=== PATIENT | male | born 1975 | race Caucasian/White ===

== ENCOUNTER 2017-10-10 02:19 | Emergency (ER) | payer MEDICAID ==
--- NOTE | 2017-10-10 02:57 | C.PDOC ---
History Of Present Illness <Rylan Salomon R - Last Filed: 10/10/17 06:42> <DavePawanTipton M - Last Filed: 10/10/17 09:26> Patient seen tonite due to substerbnal discomfort. dscribed as skipped bets. Hx of same beffore in the pas and being ff up in [facility]. (Rylan Salomon) History Per: Patient History/Exam Limitations: no limitations Onset/Duration Of Symptoms: Hrs Current Symptoms Are (Timing): Still Present Severity: None Pain Scale Rating Of: 0 Quality: Other (skipping beats) Associated Symptoms: denies: Nausea, Dyspnea, Diaphoresis, Syncope Modifying Factors: None Exacerbating Factors: None Alleviating Factors: None Recent travel outside of the [place]: No Additional History Per: Patient <Rylan Salomon - Last Filed: 10/10/17 06:42> <Saeed Acosta M - Last Filed: 10/10/17 09:26> Chief Complaint (Nursing): Palpitations Past Medical History - Medical History PMH: HTN Other PMH: cardiac arrythmia Surgical History: No Surg Hx Family History: States: Unknown Family Hx - Social History Hx Alcohol Use: No Hx Substance Use: No - Immunization History Hx Tetanus Toxoid Vaccination: No Hx Influenza Vaccination: No Hx Pneumococcal Vaccination: No <Rylan Salomon - Last Filed: 10/10/17 06:42> Vital Signs: Last Vital Signs Temp 98.3 F 10/10/17 04:58 Pulse 92 H 10/10/17 04:58 Resp 18 10/10/17 07:32 BP 144/80 10/10/17 04:58 Pulse Ox 94 L 10/10/17 07:32 Review Of Systems Constitutional: Negative for: Fever, Chills, Sweats, Weakness, Malaise, Weight loss Cardiovascular: Positive for: Palpitations. Negative for: Orthopnea, Edema, Light Headedness Respiratory: Negative for: Cough, Shortness of Breath, Hemoptysis Gastrointestinal: Negative for: Nausea, Vomiting Genitourinary: Negative for: Dysuria Musculoskeletal: Negative for: Neck Pain, Shoulder Pain Skin: Negative for: Rash Neurological: Negative for: Weakness, Numbness, Incoordination, Change in Speech Psych: Positive for: Anxiety. Negative for: Depression <Rylan Salomon - Last Filed: 10/10/17 06:42> Physical Exam - Physical Exam Appears: No Acute Distress Skin: Normal Color Nose: Normal Throat: Normal Neck: Normal Cardiovascular: Rhythm Regular, Other (occa. premature beats.) Respiratory: Normal Breath Sounds Gastrointestinal/Abdominal: Normal Exam Back: Normal Inspection Extremity: Normal ROM <Rylan Salomon - Last Filed: 10/10/17 06:42> ED Course And Treatment - Laboratory Results Result Diagrams: 10/10/17 03:06 10/10/17 03:06 ECG: Interpreted By Me, Viewed By Me ECG Rhythm: Sinus Rhythm ECG Interpretation: Normal, No Acute Changes Interpretation Of ECG: NSR, no acute change, dina tracings, no abnorma breats O2 Sat by Pulse Oximetry: 98 <Rylan Salomon - Last Filed: 10/10/17 06:42> - Laboratory Results Result Diagrams: 10/10/17 03:06 10/10/17 03:06 <Saeed Acosta - Last Filed: 10/10/17 09:26> Medical Decision Making <Rylan Salomon - Last Filed: 10/10/17 06:42> <Saeed Acosta - Last Filed: 10/10/17 09:26> Medical Decision Making: Time: 2:53 Initial Plan: --EKG --Basic blood work --Free T3 --Free T4 --Troponin I --D dimer --Chest x-ray --Toradol 30 mg IVP --Xanax 0.25 mg PO --Reevaluation Labs reviewed: D dimer elevated Pending CT Chest PE study. 7:00 Dr. Acosta to take over care, patient still pending PE study (Rylan Salomon ) Disposition Discussed With : Saeed Acosta (pending PE study) Counseled Patient/Family Regarding: Studies Performed, Diagnosis - Disposition Disposition Time: 07:00 <Rylan Salomon - Last Filed: 10/10/17 06:42> - Disposition Disposition Time: 09:22 - POA Core Measure Indicators: Chest Pain <Saeed Acosta - Last Filed: 10/10/17 09:26> - Disposition Referrals: Joelle Thompson MD [Primary Care Provider] - Disposition: AGAINST MEDICAL ADVICE Condition: STABLE Additional Instructions: You are signing out against medical advice and assume responsibility of your care. You are welcome to return to ER at any time. You are assuming responsibility of your care and do not hold myself or staff responsible for potential negative outcome including . Follow up with your doctor immediately return to ER at any time. Instructions: Chest Pain, Palpitations Forms: General Discharge Instructions, [facility] (Slovak) - Clinical Impression Clinical Impression: Palpitations, Chest pain Addendum <Rylan Salomon - Last Filed: 10/10/17 06:42> <Saeed Acosta - Last Filed: 10/10/17 09:26> Addendum: 10/10/17 09:19 Patient with chest discomfort and palpitations. Patient with negative pe study. Patient with hx of htn and diabetes. Patient will s/o against medical advice. Patient advised to stay and remain adamant with leaving and will assume responsibility of his care. Patient advised to return to ER at any time. Patient understand by leaving ama he is responsible for his care and do not hold myself and staff responsible for irreversible outcome including . patient states understanding and will assume responsibility of his care. (Saeed Acosta)
[2017-10-10 03:08] LABS: BASO # 0.1 K/uL (0.0-0.2); BASO % 1.2 % (0.0-2.0); EOS # 0.3 K/uL (0.0-0.7); EOS % 4.2 % (0.0-4.0); HEMOGLOBIN 13.2 g/dL (12.0-18.0); LYMPH # 1.7 K/uL (1.0-4.3); LYMPH % 20.2 % (20.0-40.0); MEAN CELL VOLUME 78.5 fL (80.0-94.0); MEAN CORPUSCULAR HEMOGLOBIN 25.9 pg (27.0-31.0); MEAN CORPUSCULAR HGB CONC 33.1 g/dL (33.0-37.0); MEAN PLATELET VOLUME 9.8 fL (7.2-11.7); MONO # 0.6 K/uL (0.0-0.8); MONO % 6.9 % (0.0-10.0); NEUT # 5.5 K/uL (1.8-7.0); NEUT % 67.5 % (50.0-75.0); RBC 5.1 Mil/uL (4.40-5.90); RED CELL DISTRIBUTION WIDTH 14.5 % (11.5-14.5); WHITE BLOOD COUNT 8.2 K/uL (4.8-10.8)
[2017-10-10 03:21] LABS: ALBUMIN 4.2 g/dL (3.5-5.0); ALT/SGPT 50 U/L (21-72); AST/SGOT 35 U/L (17-59); BLOOD UREA NITROGEN 17 mg/dL (9-20); CALCIUM 9.1 mg/dl (8.6-10.4); GFR AFRICAN-AMERICAN > 60; GFR NON-AFRICAN AMERICAN > 60
[2017-10-10 07:35] VITALS: RESP 18
[2017-10-10] MEDS ORDERED: Iodixanol 320 MG/ML 100 ML BOTTLE IV ONE (07:39)
--- NOTE | 2017-10-10 08:36 | CT ---
PROCEDURE: CT Chest with contrast (Pulmonary Angiogram) HISTORY: chest pain/ elevated D-dimer COMPARISON: None available. TECHNIQUE: Axial computed tomography images were obtained of the chest in the pulmonary arterial phase of enhancement. Coronal and sagittal reformatted images were created and reviewed. Intravenous contrast dose: 100 mL Visipaque 320 Radiation dose: Total exam DLP = 617.17 mGy-cm. This CT exam was performed using one or more of the following dose reduction techniques: Automated exposure control, adjustment of the mA and/or kV according to patient size, and/or use of iterative reconstruction technique. FINDINGS: PULMONARY ARTERIES: Examination technically limited. Suboptimal timing relative to contrast bolus and suboptimal image quality due to large body habitus. No large central main or lobar pulmonary artery filling defect. Cannot rule out pulmonary embolism in segmental or subsegmental pulmonary artery branches. AORTA: No acute findings. No thoracic aortic aneurysm. LUNGS: Unremarkable. No nodule, mass or pulmonary consolidation. PLEURAL SPACES: Unremarkable. No effusion or pneuomothorax. HEART: Unremarkable. No cardiomegaly. No significant pericardial effusion. LYMPH NODES: No lymphadenopathy. BONES, CHEST WALL: Unremarkable. No fracture or destructive lesion OTHER FINDINGS: Unremarkable. IMPRESSION: Technically limited examination. No evidence of large central pulmonary embolus. Cannot rule out segmental/subsegmental pulmonary arterial filling defect. Otherwise unremarkable examination.
[2017-10-10 09:38] VITALS: BP 147/89; PULSE 74; TEMP 98; O2SAT 98
--- NOTE | 2017-10-10 10:09 | RAD ---
HISTORY: Chest pain. COMPARISON: No prior. TECHNIQUE: Chest PA and lateral FINDINGS: LUNGS: Poor inspiration with low lung volumes, crowded bronchovascular markings and mild bibasilar atelectasis. PLEURA: No significant pleural effusion identified. No pneumothorax apparent. CARDIOVASCULAR: Heart appears enlarged. OSSEOUS STRUCTURES: No significant abnormalities. VISUALIZED UPPER ABDOMEN: Normal. OTHER FINDINGS: None. IMPRESSION: Poor inspiration with low lung volumes, crowded bronchovascular markings and mild bibasilar atelectasis.
--- NOTE | 2017-10-12 23:37 | CARD ---
APPROVED REPORT EKG Measurement Heart [id number] <Conclusion> Normal sinus rhythm Normal ECG
== END 2017-10-10 09:42 | disposition left against medical advice (07) ==
LOC: C.ER 02:19 → SUPCPDRO 02:19 → C.ER 09:42
DX: R00.2 Palpitations (principal); R07.9 Chest pain, unspecified
CPT/HCPCS: 71046; 71275; 80053; 84439; 84481; 84484; 85025; 85378; 96374; 99285; J1885; Q9967

== ENCOUNTER 2017-10-11 04:20 | Emergency (ER) | payer MEDICAID ==
[2017-10-11] MEDS ORDERED: DiphenhydrAMINE 50 mg/ml Inj IVP STA (05:08)
--- NOTE | 2017-10-11 05:11 | C.PDOC ---
Addendum entered and electronically signed by Poonam Iqbal PA-C 06:18: Disposition Clinical Impression: Allergic reaction Disposition: HOME/ ROUTINE Disposition Time: 06:15 Condition: STABLE Additional Instructions: Take meds as directed Follow up with PMD Return ti ER if difficulty breathing, lip or tongue swelling or worse Prescriptions: DiphenhydrAMINE [Benadryl] 50 mg PO Q6H #20 cap Famotidine [Pepcid] 20 mg PO DAILY #20 tab predniSONE [Prednisone] 40 mg PO DAILY #10 tab Instructions: Contrast Dye Allergy Referrals: Joelle Thompson MD [Staff Provider] - Stand Alone Forms: [facility] (Mauritanian) Original Note: History Of Present Illness 42 year old male presents to the ER with a complaint of facial swelling that began a few hours [employer]. Patient reports he had a CT with IV dye done yesterday for the first time and was recently started on a new insulin, victoza. Denies SOB, lip swelling, tongue swelling, fever, or trauma. Time Seen by Provider: 10/11/17 04:38 Chief Complaint (Nursing): Allergic Reaction History Per: Patient History/Exam Limitations: no limitations Onset/Duration Of Symptoms: Hrs Current Symptoms Are (Timing): Still Present Possible Cause: Medication, Other (IV dye) Associated Symptoms: Swelling. denies: Dyspnea, Trouble Swallowing Home/EMS Treatment: None Recent travel outside of the [place]: No Past Medical History Reviewed: Historical Data, Nursing Documentation, Vital Signs Vital Signs: Last Vital Signs Temp Pulse 88 10/11/17 04:32 Resp 20 10/11/17 04:32 BP 138/89 10/11/17 04:32 Pulse Ox 97 10/11/17 05:17 - Medical History PMH: HTN Family History: States: Unknown Family Hx - Social History Hx Alcohol Use: No Hx Substance Use: No - Immunization History Hx Tetanus Toxoid Vaccination: No Hx Influenza Vaccination: No Hx Pneumococcal Vaccination: No Review Of Systems Constitutional: Negative for: Fever ENT: Positive for: Other (Facial swelling). Negative for: Mouth Swelling, Throat Swelling Respiratory: Negative for: Shortness of Breath Physical Exam - Physical Exam Appears: Non-toxic Skin: Normal Color, Warm, Dry Head: Atraumatic (Facial), Normacephalic, Swelling (Facial ) Eye(s): bilateral: Normal Inspection (Periorbital swelling) Nose: Normal Oral Mucosa: Moist, No Other (Swelling) Tongue: Normal Appearing, No Swelling Lips: Normal Appearing, No Swelling Throat: Normal, No Erythema, No Other (Swelling) Neck: Normal, Supple Chest: Symmetrical, No Tenderness Cardiovascular: Rhythm Regular Respiratory: Normal Breath Sounds, No Accessory Muscle Use, No Stridor, No Wheezing Neurological/Psych: Oriented x3, Normal Speech ED Course And Treatment O2 Sat by Pulse Oximetry: 97 (Room air) Pulse Ox Interpretation: Normal Progress Note: Benadryl, pepcid, and solumedrol administered. On reevaluation, patient reports improvement of symptoms, facial swelling is resolving, he is not in any respiratory distress; will discharge home with a instructions to follow up with PMD or return if symptoms worsen. Disposition Counseled Patient/Family Regarding: Diagnosis, Need For Followup, Rx Given - Disposition Referrals: Joelle Thompson MD [Staff Provider] - Disposition: HOME/ ROUTINE Disposition Time: 06:15 Condition: STABLE Additional Instructions: Take meds as directed Follow up with PMD Return ti ER if difficulty breathing, lip or tongue swelling or worse Prescriptions: DiphenhydrAMINE [Benadryl] 50 mg PO Q6H #20 cap Famotidine [Pepcid] 20 mg PO DAILY #20 tab predniSONE [Prednisone] 40 mg PO DAILY #10 tab Instructions: Drug Allergy, Contrast Dye Allergy Forms: [facility] (Mauritanian) - Clinical Impression Clinical Impression: Allergic reaction - PA / PROCESS DEVELOPMENT ENGINEER / Resident Statement MD/DO has reviewed & agrees with the documentation as recorded. - Scribe Statement The provider has reviewed the documentation as recorded by the Scribmohan Leone All medical record entries made by the Chanoibe were at my direction and personally dictated by me. I have reviewed the chart and agree that the record accurately reflects my personal performance of the history, physical exam, medical decision making, and the department course for this patient. I have also personally directed, reviewed, and agree with the discharge instructions and disposition.
[2017-10-11] MEDS ORDERED: DiphenhydrAMINE 50 mg/ml Inj ONE ×2 (05:16→05:17)
[2017-10-11 06:25] VITALS: BP 130/86; PULSE 84; RESP 16; TEMP 98.7; O2SAT 98
== END 2017-10-11 06:40 | disposition home or self-care (01) ==
LOC: C.ER 04:20
DX: T78.40XA Allergy, unspecified, initial encounter (principal)
CPT/HCPCS: 96374; 96375; 99284; J1200; J2930